=== PATIENT | female | born 1945 | race Caucasian/White ===

== ENCOUNTER → 2019-10-08 | Outpatient (CLI) | payer SELFPAY ==
[2013-06-08 22:11] VITALS: BMI 19.8
== END | disposition home or self-care (01) ==
LOC: LABSPEC 17:31
PROVIDERS: PCP Family Medicine; Referring Provider Podiatrist Foot & Ankle Surgery; Visit Provider Podiatrist Foot & Ankle Surgery
DX: L02.611 Cutaneous abscess of right foot (principal)
CPT/HCPCS: 87070; 87186; 87205

== ENCOUNTER 2024-04-25 03:32 | Inpatient (IN) | payer MEDICARE, SELFPAY ==
[2024-04-25] VITALS (20 sets, daily range): BP systolic 127–198; BP diastolic 59–97; PULSE 81–110; RESP 18–28; TEMP 36.3–37.7; O2SAT 91–99; BMI 16.9; BMI 15.9
--- NOTE | 2024-04-25 03:55 | EDS_ITS ---
HPI History of Present Illness Chief Complaint: Shortness of Breath Informant: patient, spouse/S.O. and EMS Narrative Narrative: Patient is a 78-year-old female with past medical history of hypertension and COPD/emphysema. She states that she wears 2 L of nasal cannula oxygen at nighttime but does not require supplemental oxygen during the day. She reports over the last 24 hours she has had increased shortness of breath and sensation of generalized fatigue/weakness. She denies any known sick contacts. She states that despite wearing her oxygen her symptoms seem to worsen throughout the night/morning and therefore EMS was called to bring her in for evaluation. EMS reports her pulse ox was 93% on her normal 2 L and came up to 98% with increasing her value to 4L PFSH PFSH Medical History Closed wedge compression fracture of T12 vertebra with routine healing COPD exacerbation Peripheral vascular disease, unspecified Ulcers of both lower extremities, limited to breakdown of skin Venous insufficiency of both lower extremities DDD (degenerative disc disease), lumbar DDD (degenerative disc disease), cervical MR (congenital mitral regurgitation) Stage 3 severe COPD by GOLD classification Mixed hyperlipidemia PAD (peripheral artery disease) Tobacco use disorder, continuous Bilateral carotid artery stenosis PVC's (premature ventricular contractions) Hydronephrosis UPJ obstruction, acquired Family history of ischemic heart disease Sebopsoriasis Other psoriasis Essential hypertension, benign Hallux valgus Porokeratosis Home Medications ?Medication ?Instructions ?Recorded ?Last Taken ?Type tiotropium bromide 18 mcg capsule 1 puff inhalation DA AMIRA 06/08/13 06/08/13 History with inhalation device (Spiriva with HandiHaler) albuterol sulfate 90 mcg/actuation 2 puff inhalation Q 4H PRN PRN 04/25/24 Unknown History aerosol inhaler shortness of breath or wheez ing aspirin 81 mg tablet,delayed 81 mg PO DAILY 04/25/24 U nknown History release diltiazem HCl 120 mg 120 mg PO DAILY 04/25/24 Unk nown History capsule,extended release 24 hr ipratropium 0.5 mg-albuterol 3 mg 3 ml inhalation Q4H PRN PRN 04/25/24 Unknown History (2.5 mg base)/3 mL nebulization wheezing soln lisinopril 40 mg tablet 40 mg PO DAILY 04/25/24 Unkn own History multivitamin (Daily Multi-Vitamin 1 tab PO DAILY 04/25 Unknown History tablet) prednisone 20 mg tablet 10 mg PO DAILY@0800 04/25/24 Unknown History Allergy/AdvReac Type Severity Reaction Status Date / Time atorvastatin (From Lipitor) Allergy Mild Nausea Verified 04/25/24 03:42 doxycycline Allergy Mild Rash Verified 04/25/24 03:42 honey (From MediHoney Allergy Mild Other Verified 04/25/24 03:42 (honey)) nicotine Allergy Mild Other Verified 04/25/24 03:42 pneumococcal vaccine (From Allergy Mild Other Verified 04/25/24 03:42 Pneumovax-23) Seasonal Allergies: Uncoded Allergy Mild cough Verified 04/25/24 03:42 sertraline (From Zoloft) Allergy Mild Other Verified 04/25/24 03:42 fexofenadine HCl (From Allergy Unknown Verified 04/25/24 03:42 Marcie) Social History Smoking Status: Current every day smoker tobacco type: cigarettes ROS ROS ED Constitutional Constitutional ED: Denies chills or fever(s) Eyes Eyes: Denies change in vision ENT ENT ED: Reports rhinorrhea; Denies sore throat Cardiovascular Cardiovascular: Denies chest pain or palpitations Respiratory/Chest Respiratory/Chest: Reports cough and dyspnea Gastrointestinal Gastrointestinal: Denies abdominal pain, diarrhea, nausea or vomiting Genitourinary Genitourinary ED: Denies dysuria Musculoskeletal Musculoskeletal: Reports myalgias Integumentary Denies rash Neurologic Neurologic: Reports weakness; Denies headache(s) or paresthesias Hematologic/Lymphatic Hematologic/Lymphatic: Denies easy bleeding or easy bruising EXAM Physical Exam Const Vital Signs: 04/25/24 03:33 04/25/24 03:37 04/25/24 03:56 Temperature 99.6 F H 99.6 F H Temperature Source Oral Oral Pulse Rate 110 H 110 H Respiratory Rate 26 H 26 H Respiratory Effort Short of Breath Respiratory Depth Normal Respiratory Pattern Tachypnea Blood Pressure 198/89 H 198/89 H Blood Pressure Mean 125 125 Pulse Ox 96 96 Oxygen Delivery Method Nasal Cannula Nasal Cannula Nasal Cannula Oxygen Flow Rate (L/min) 2 2 2 Fraction of Inspired Oxygen (FIO2) 04/25/24 04:00 04/25/24 04:37 04/25/24 05:00 Temperature 99.7 F H 99.8 F H Temperature Source Oral Oral Pulse Rate 96 109 H 108 H Respiratory Rate 21 H 25 H 24 H Respiratory Effort Respiratory Depth Respiratory Pattern Normal Blood Pressure 164/77 H 173/59 H Blood Pressure Mean 106 97 Pulse Ox 98 98 Oxygen Delivery Method Nasal Cannula Oxygen Flow Rate (L/min) Fraction of Inspired Oxygen (FIO2) 2 04/25/24 05:33 04/25/24 05:42 04/25/24 06:00 Temperature 99.5 F H 98.8 F Temperature Source Oral Pulse Rate 103 H 99 91 Respiratory Rate 28 H 26 H 22 H Respiratory Effort Respiratory Depth Respiratory Pattern Blood Pressure 159/79 H 157/79 H 174/78 H Blood Pressure Mean 105 105 110 Pulse Ox 98 98 99 Oxygen Delivery Method Nasal Cannula Nasal Cannula Oxygen Flow Rate (L/min) 2 2 Fraction of Inspired Oxygen (FIO2) Positive well nourished and well developed General Appearance ED: well developed; Negative for pallor HEENT HEENT Narrative: Nasal mucosa is hyperemic and boggy There is cobblestoning noted in the posterior pharynx consistent with sinus drainage without airway edema or compromise Eyes PERRL and EOMs intact bilaterally General Eye ED: Negative for scleral icterus Neck supple and no JVD Resp Resp Narrative: Patient is an mild respiratory distress with tachypnea and slight accessory muscle use Breath sounds are severely diminished throughout with diffuse mild expiratory wheeze consistent with history of COPD Cardio regular rhythm Rate: tachycardic and other Other Details: Radial and carotid pulses are equal and symmetric Extremity Extremity Narrative: Mild soft tissue swelling to the right lower leg and small chronic wound present. No surrounding soft tissue changes to suggest secondary infection Negative Homans' sign bilaterally Neuro oriented x3, CN's II-XII intact bilaterally and no sensory deficits noted Sensorium / Orientation: alert Motor Exam: strength 5/5 throughout Psych mental status grossly normal Skin Skin Narrative: Chronic wound to the right lower leg General Skin Exam: Negative for jaundice or pallor MDM MDM MDM Narrative Medical decision making narrative: Patient arrived to the ER with mild respiratory distress with tachypnea and accessory muscle use. Her constellation of symptoms is most consistent with influenza versus COVID versus RSV. In order to ensure that there is not secondary pneumonia or pneumothorax a chest x-ray was added. Patient blood work was obtained to check for acute kidney injury or clinically significant electrolyte abnormalities as a potential cause or acute blood loss anemia. Lab work revealed no clinically significant findings. Chest x-ray revealed no acute lung pathology other than her underlying COPD. Viral swab was positive for influenza which correlates with her symptoms. The patient does have oxygen available at home but she is now requiring a slightly larger dose of around 4 L compared to her normal 2 L to keep her sats greater than 90%. She also does not typically wear oxygen throughout the day and drops down to 88% with ambulation and also reports she feels extremely weak and off balance with this. As she is only 24 hours into the disease process there is high likelihood her symptoms worsen and therefore talk to the hospitalist about potential admission to monitor the patient to ensure her symptoms improve and do not worsen the point where she needs more invasive ventilation such as BiPAP or intubation. He does agree with plan of care at this time and recommends Tamiflu be given secondary to her influenza status and early disease process. Plan of care was discussed with patient and she is agreeable to it and therefore should be admitted at this time History & Record Review Discussion w/independent historian: EMS personnel and Patient Lab Data Attestation: I reviewed the patient's lab results. Labs: Laboratory Results - last 24 hr 04/25/24 03:40 WBC 11.3 H RBC 4.36 Hgb 14.6 Hct 43.2 MCV 99.1 H MCH 33.5 H MCHC 33.8 RDW Std Deviation 47.8 H RDW Coeff of Edgar 13.1 Plt Count 171 MPV 9.1 Immature Gran % (Auto) 0.900 Neut % (Auto) 80.2 H Lymph % (Auto) 11.4 L [place] % (Auto) 6.6 Eos % (Auto) 0.5 Baso % (Auto) 0.4 Absolute Neuts (auto) 9.0 H Absolute Lymphs (auto) 1.29 Nucleated RBC % 0 Sodium 138 Potassium 4.6 Chloride 102 Carbon Dioxide 28.0 Anion Gap 8 BUN 25 H Creatinine 1.12 H Estim Creat Clear Calc 30.68 Est GFR (MDRD) Af Amer 61 Est GFR (MDRD) Non-Af 50 L BUN/Creatinine Ratio 22.3 H Glucose 93 Calcium 10.1 Magnesium 2.2 Radiography Diagnostic Testing: Clinical Impression(s) from Imaging Studies Chest X-Ray 04/25/24 04:30 IMPRESSION: Pulmonary hyperinflation/COPD. No acute cardiopulmonary process is demonstrated. If there are persistent symptoms or clinical concern, follow-up chest CT evaluation may be considered. Reading Location: [facility] Chest x-ray as interpreted by the emergency medicine physician reveals COPD changes without acute infiltrate or pneumothorax Management Discussion w/another healthcare provider: Hospitalist Discharge Plan Triage Chief Complaint: Shortness of Breath ED Provider: Raman Rodriguez Dx/Rx/DC Orders Clinical Impression: Influenza A, HTN (hypertension), COPD with acute exacerbation Prescriptions: No Action tiotropium bromide [Spiriva with HandiHaler] 1 PUFF inhaler 1 puff inhalation DAILY aspirin 81 mg tablet,delayed release (DR/EC) 81 mg PO DAILY diltiazem HCl 120 mg capsule,extended release 24hr 120 mg PO DAILY albuterol sulfate 90 mcg/actuation HFA aerosol inhaler 2 puff INHALATION Q4H PRN PRN (Reason: shortness of breath or wheezing) lisinopril 40 mg tablet 40 mg PO DAILY multivitamin [Daily Multi-Vitamin] Tablet 1 tab PO DAILY ipratropium-albuterol 0.5 mg-3 mg(2.5 mg base)/3 mL solution for nebulization 3 ml inhalation Q4H PRN PRN (Reason: wheezing) prednisone 20 MG tablet 10 mg PO DAILY@0800 Rx Instructions: 40 mg daily for 5 days. Primary Care Provider: Merlin Jim Referrals: Merlin Jim MD [Primary Care Provider] - Print Language: Israeli Disposition Disposition: Acute Care Hospital [facility]
[2024-04-25 03:56] LABS: Absolute Lymphocyte Count 1.29 X10^3/uL (0.83-4.51); Basophil# 0.05 X10^3/uL; Basophil% 0.4 % (0-1); Eosinophil# 0.06 X10^3/uL; Eosinophils% 0.5 % (0-5); Hematocrit 43.2 % (37-47); Hemoglobin 14.6 g/dL (12.0-15.0); Lymphocyte # 1.29 X10^3/ul (0.83-4.51); Lymphocyte % 11.4 % (19-41); Mean Corp Hgb Conc 33.8 g/dL (32-36); Mean Corpuscular Hgb 33.5 pg (27.0-32.0); Mean Corpuscular Volume 99.1 fL (81-99); Mean Platelet Vol. 9.1 fl (6.2-12.0); Monocyte# 0.75 X10^3/uL; Monocyte% 6.6 % (0-10); NRBC Flagged by Analyzer 0 % (0-5); Neutrophil # 9.03 X10^3/uL (2.7-7.7); Neutrophil % 80.2 % (47-70); Platelet Count 171 K/mm3 (150-450); RBC Distribution Width CV 13.1 % (11.6-14.6); RBC Distribution Width SD 47.8 fl (35.1-43.9); Red Blood Count 4.36 M/mm3 (4.2-5.4); White Blood Count 11.3 K/mm3 (4.4-11.0)
[2024-04-25] MEDS: Ipratropium/Albuterol Sulfate 3 ML AMPUL.NEB INHALATION ×3 (04:00→20:35)
[2024-04-25 04:10] LABS: Anion Gap 8 (5-15); BUN 25 mg/dL (7-18); BUN/Creat Ratio 22.3 RATIO (10-20); Calcium,Total 10.1 mg/dL (8.5-10.1); Chloride 102 mmol/L (98-107); Creatinine, Serum 1.12 mg/dL (0.55-1.02); EST Glomerular Filtration Rate 50 mL/min (>60); Est Glom Filt Rate - Afr Amer 61 mL/min (>60); Estimated Creatinine Clearance 30.68 ml/min; Glucose 93 mg/dL (74-106); Magnesium 2.2 mg/dL (1.6-2.6); Potassium 4.6 mmol/L (3.5-5.1); Sodium Level 138 mmol/L (136-145)
[2024-04-25] MEDS: Acetaminophen 325 MG Tablet 650 MG PO (04:19)
[2024-04-25] MEDS: MethylPREDNISolone 125 MG/2 ML Vial IV (04:21)
--- NOTE | 2024-04-25 04:30 | RAD_ITS ---
PROCEDURE: AP and lateral chest radiographs, two views REASON FOR EXAM: Cough TECHNIQUE: AP and lateral chest radiographs were obtained. COMPARISON: None. FINDINGS: The cardiomediastinal silhouette is within normal limits. Monitoring leads overlie the chest. No pneumothorax, focal airspace consolidation, or pleural effusion. The lungs are hyperinflated. Bones are osteopenic with degenerative changes in the spine. Age-indeterminate [id number] height loss of a lower thoracic vertebral body on the lateral view. RAD/Chest PA and Lateral IMPRESSION: Pulmonary hyperinflation/COPD. No acute cardiopulmonary process is demonstrate d. If there are persistent symptoms or clinical concern, follow-up chest CT evalua tion may be considered. Reading Location: [facility]
--- NOTE | 2024-04-25 06:06 | HP.PCM.HOS_ITS ---
[facility] - General General Date of Admission: 04/25/24 Date of Service: 04/25/24 Chief Complaint: SOB, Wheezing, Generalized Weakness and Fatigue. HPI Yue PARRY, is a 78 F with past medical history of essential hypertension; on lisinopril and diltiazem, history of hyperlipidemia; currently not on treatment, chronic and ongoing tobacco abuse; with subsequent COPD on as needed albuterol sulfate and DuoNebs with Spiriva, chronic hypoxic respiratory failure on 2L NC nocturnal, history of bilateral carotid stenosis, history of PVD; with venous insufficiency ulcers to both lower extremities and chronic wound of the Right lower extremity, history of congenital mitral regurgitation, history of PVCs, history of UPJ obstruction with hydronephrosis, history of sebopsoriasis, history of porokeratosis, history of hallux valgus, history of closed T12 wedge compression fracture and 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 Ms. Parry reports her symptoms began approximately 1 day prior to admission with the rapid onset of dyspnea on exertion that progressed to shortness of breath at rest. She also admits to generalized weakness and severe fatigue with patient now wearing her oxygen continuously for the past 24 hours with continued shortness of breath. She denies known sick contacts. She admits to runny nose and myalgias with substernal chest pain that was pressure-like and coincided with her highly elevated blood pressures but she denies associated chills, changes in vision, palpitations, abdominal pain, nausea, vomiting, diarrhea, dysuria, back pain or headache. In the ER she was noted to have a viral screen positive for Influenza A with a corresponding Leukocytosis of 11.3 K present on admission and low-grade fever of 99.5 ?F complicated by clinical evidence of acute-on chronic respiratory insufficiency evidenced by Tachypnea of ~26 breaths/min and patient requiring 4L NC in ER compounded by Uncontrolled Hypertension with blood pressure of 198/89 mmHg present on admission all culminating because Generalized Weakness and Fatigue with diffuse Myalgias and she was then admitted to the general medical floor under droplet and contact precautions for state that is expected to extend beyond 2 midnights. [facility] Medical History (Updated 04/25/24 @ 07:[address] Ming de Gurpreet, DO) Closed wedge compression fracture of T12 vertebra with routine healing COPD exacerbation Peripheral vascular disease, unspecified Ulcers of both lower extremities, limited to breakdown of skin Venous insufficiency of both lower extremities DDD (degenerative disc disease), lumbar DDD (degenerative disc disease), cervical MR (congenital mitral regurgitation) Stage 3 severe COPD by GOLD classification Mixed hyperlipidemia PAD (peripheral artery disease) Tobacco use disorder, continuous Bilateral carotid artery stenosis PVC's (premature ventricular contractions) Hydronephrosis UPJ obstruction, acquired Family history of ischemic heart disease Sebopsoriasis Other psoriasis Essential hypertension, benign Hallux valgus Porokeratosis Home Medications ?Medication ?Instructions ?Recorded ?Last Taken ?Type tiotropium bromide 18 mcg capsule 1 puff inhalation DA AMIRA 06/08/13 06/08/13 History with inhalation device (Spiriva with HandiHaler) albuterol sulfate 90 mcg/actuation 2 puff inhalation Q 4H PRN PRN 04/25/24 Unknown History aerosol inhaler shortness of breath or wheez ing aspirin 81 mg tablet,delayed 81 mg PO DAILY 04/25/24 U nknown History release diltiazem HCl 120 mg 120 mg PO DAILY 04/25/24 Unk nown History capsule,extended release 24 hr ipratropium 0.5 mg-albuterol 3 mg 3 ml inhalation Q4H PRN PRN 04/25/24 Unknown History (2.5 mg base)/3 mL nebulization wheezing soln lisinopril 40 mg tablet 40 mg PO DAILY 04/25/24 Unkn own History multivitamin (Daily Multi-Vitamin 1 tab PO DAILY 04/25 Unknown History tablet) prednisone 20 mg tablet 10 mg PO DAILY@0800 04/25/24 Unknown History Allergy/AdvReac Type Severity Reaction Status Date / Time atorvastatin (From Lipitor) Allergy Mild Nausea Verified 04/25/24 03:42 doxycycline Allergy Mild Rash Verified 04/25/24 03:42 honey (From [facility] Allergy Mild Other Verified 04/25/24 03:42 (honey)) nicotine Allergy Mild Other Verified 04/25/24 03:42 pneumococcal vaccine (From Allergy Mild Other Verified 04/25/24 03:42 Pneumovax-23) Seasonal Allergies: Uncoded Allergy Mild cough Verified 04/25/24 03:42 sertraline (From Zoloft) Allergy Mild Other Verified 04/25/24 03:42 fexofenadine HCl (From Allergy Unknown Verified 04/25/24 03:42 Marcie) Social History Smoking Status: Current every day smoker tobacco type: cigarettes ROS ROS Narrative Review of Systems: Constitutional: Patient was noted to have low-grade fever of 99.5 ?F present on admission but she denies chills. Eyes: Patient denies changes in vision or discharge from eyes. ENT: Patient admits to runny nose but she denies sore throat or ear pain. Resp: Patient admits to significant shortness of breath and nonproductive cough as per HPI. CV: Patient admits to chest pressure that corresponded with her highly elevated blood pressure but she denies palpitations or heart racing. GI: Patient denies abdominal pain, nausea, vomiting, diarrhea or constipation. : Patient denies dysuria or hematuria. MSK: Patient reports generalized weakness and diffuse myalgias but she denies arthralgias. Skin: Patient has chronic Right lower extremity wound but she denies rash. Psych: Patient denies symptoms of uncontrolled depression or anxiety. Neuro: Patient denies headache, paresthesia or focal neurologic deficits. Allergy: Patient denies lip swelling, tongue swelling or urticaria. Hematology: Patient denies easy bleeding or easy bruisability. Endocrinology: Patient denies polyuria, polydipsia or polyphagia. 14 point review systems otherwise negative except for positives noted above in HPI. Vital Signs Vital Signs Vital Signs: 04/25/24 03:33 04/25/24 03:37 04/25/24 03:56 Temperature 99.6 F H 99.6 F H Temperature Source Oral Oral Pulse Rate 110 H 110 H Respiratory Rate 26 H 26 H Respiratory Effort Short of Breath Respiratory Depth Normal Respiratory Pattern Tachypnea Blood Pressure 198/89 H 198/89 H Blood Pressure Mean 125 125 Pulse Ox 96 96 Oxygen Delivery Method Nasal Cannula Nasal Cannula Nasal Cannula Oxygen Flow Rate (L/min) 2 2 2 Fraction of Inspired Oxygen (FIO2) 04/25/24 04:00 04/25/24 04:37 04/25/24 05:00 Temperature 99.7 F H 99.8 F H Temperature Source Oral Oral Pulse Rate 96 109 H 108 H Respiratory Rate 21 H 25 H 24 H Respiratory Effort Respiratory Depth Respiratory Pattern Normal Blood Pressure 164/77 H 173/59 H Blood Pressure Mean 106 97 Pulse Ox 98 98 Oxygen Delivery Method Nasal Cannula Oxygen Flow Rate (L/min) Fraction of Inspired Oxygen (FIO2) 2 04/25/24 05:33 04/25/24 05:42 Temperature 99.5 F H Temperature Source Pulse Rate 103 H 99 Respiratory Rate 28 H 26 H Respiratory Effort Respiratory Depth Respiratory Pattern Blood Pressure 159/79 H 157/79 H Blood Pressure Mean 105 105 Pulse Ox 98 98 Oxygen Delivery Method Nasal Cannula Oxygen Flow Rate (L/min) 2 Fraction of Inspired Oxygen (FIO2) Weight Weight: 101 lb 13.657 oz Body Mass Index (BMI) 16.9 Physical Exam Const alert and oriented x3 Constitutional Narrative: Modestly labored respirations noted with very thin 'pink puffer' phenotype. General Appearance: cooperative HEENT normocephalic, head/scalp atraumatic and hearing grossly normal bilaterally HEENT Narrative: Patient noted to have cobblestoning in the posterior pharynx consistent with sinus drainage without airway edema or compromise. Eyes PERRL, EOMs intact bilaterally and conjunctivae normal Neck no lymphadenopathy and supple Resp Resp Narrative: Diminished breath sounds throughout with modest respiratory distress and tachypnea and slight accessory muscle use with faint expiratory wheezing. Auscultation: wheezes Cardio regular rate and regular rhythm GI normal to inspection, nondistended, normoactive bowel sounds, soft to palpation, non-tender and non-distended Extremity normal to inspection, full ROM and no clubbing, cyanosis or edema Skin Skin Narrative: Patient is a chronic wound to the Right leg. Neuro oriented x3, CN's II-XII intact bilaterally, moves all extremities and no focal motor deficits Sensorium / Orientation: awake, alert, oriented to person, oriented to place and oriented to time Speech: speech normal Psych affect normal Results Medical Records Data Attestation: I reviewed the patient's medical records Lab / Micro Data Attestation: I reviewed the patient's lab results. 04/25/24 03:40 04/25/24 03:40 Labs: Laboratory Results - last 24 hr 04/25/24 03:40: WBC 11.3 H, RBC 4.36, Hgb 14.6, Hct 43.2, MCV 99.1 H, MCH 33.5 H , MCHC 33.8, RDW Std Deviation 47.8 H, RDW Coeff of Edgar 13.1, Plt Count 171, MPV 9.1, Immature Gran % (Auto) 0.900, Neut % (Auto) 80.2 H, Lymph % (Auto) 11.4 L, Crawford % (Auto) 6.6, Eos % (Auto) 0.5, Baso % (Auto) 0.4, Absolute Neuts (auto) 9.0 H, Absolute Lymphs (auto) 1.29, Nucleated RBC % 0, Sodium 138, Potassium 4.6, Chloride 102, Carbon Dioxide 28.0, Anion Gap 8, BUN 25 H, Creatinine 1.12 H , Estim Creat Clear Calc 30.68, Est GFR (MDRD) Af Amer 61, Est GFR (MDRD) Non-Af 50 L, BUN/Creatinine Ratio 22.3 H, Glucose 93, Calcium 10.1, Magnesium 2.2 Micro: Microbiology 04/25/24 03:45 Mucosa - Nasopharyngeal SARS-CoV-2, Influenza & RSV (PCR) - Final Influenzae A Imaging Radiology Impression Chest X-Ray 04/25/24 04:30 IMPRESSION: Pulmonary hyperinflation/COPD. No acute cardiopulmonary process is demonstrated. If there are persistent symptoms or clinical concern, follow-up chest CT evaluation may be considered. Reading Location: [facility] [address] Assessment & Plan Assessment/Plan (1) Influenza A: (2) Leukocytosis: QUALIFIERS: Leukocytosis type: unspecified Qualified Code(s): D 72.829 - Elevated white blood cell count, unspecified (3) Fever: QUALIFIERS: Fever type: due to other condition Qualified Code(s): R50.81 - Fever presenting with conditions classified elsewhere (4) COPD with acute exacerbation: (5) Tobacco abuse: (6) Respiratory insufficiency: (7) Uncontrolled hypertension: (8) Chest pressure: (9) MR (congenital mitral regurgitation): (10) Generalized weakness: (11) Fatigue: QUALIFIERS: Fatigue type: unspecified Qualified Code(s): R53.83 - Other fatigue (12) Myalgia: (13) Peripheral vascular disease, unspecified: (14) Venous insufficiency of both lower extremities: PLAN: Plan 1. Influenza A with Leukocytosis of 11.3 K present on admission and low-grade fever of 99.5 ?F present on admission - Admit to general medical floor under contact and droplet precautions. Maintain Tamiflu being done in the ER. Give supplemental vitamin D3, vitamin C and zinc to help boost immunity and hopefully speed recovery. Give acetaminophen as needed for [id number] (level 1- 5/10) pain or fever. Give morphine IV as needed for severe (level 6-10/10) pain. 2. AE COPD; in the setting of chronic and ongoing Tobacco Abuse complicating #1 - Resume IV Solu-Medrol begun in the ER plus continue scheduled and as needed nebulizers. Add IV Rocephin and IV azithromycin as COPD patient's airways are chronically colonized with numerous organisms that cannot be cleared from the airways due to loss of the mucociliary escalator. Give probiotic to replace normal kelsie. Patient was encouraged to stop smoking but she is in the precontemplative phase of her addiction. She also ironically has an allergy listed to nicotine so no patch was ordered. 3. [id number] respiratory insufficiency evidenced by Tachypnea of ~26 breaths/min and patient requiring 4L NC in ER due to #1 & #2 - Wean additional supplemental oxygen as tolerated with goal oxygen saturation of ~92%. 4. Uncontrolled Hypertension; with blood pressure of 198/89 mmHg present on admission with corresponding Chest Pressure and known history of Congenital Mitral Regurgitation compounding #1 - #3 - Continue home regimen plus give hydralazine IV prn for systolic blood pressure > 160 mmHg. Serialize troponin. 5. Generalized Weakness and Fatigue with diffuse Myalgias attributable to #1 - #4 - PT/OT and Case Management to consult and treat on-rounds in AM with help appreciated in advance. 6. History of PVD; with venous insufficiency ulcers to both lower extremities and currently healing chronic wound of the Right lower extremity adding to the medical complexity of #1 - #5 - Patient started on antibiotics for #2. Continue baby aspirin daily. We will consult Wound RN to see patient in a.m. for further recommendations with help appreciated in advance. 7. History of hyperlipidemia; currently not on treatment - Check Lipid Profile this admission to confirm status. 8. History of bilateral carotid stenosis - Noted. 9. History of congenital mitral regurgitation - Noted. Check echocardiogram to assess current valve function and LVEF in light of #4. 10. History of PVCs - Noted. 11. History of UPJ obstruction with hydronephrosis - Noted with no signs of recurrence at this time. 12. History of sebopsoriasis - Noted. 13. History of porokeratosis - Noted. 14. History of hallux valgus - Noted for the sake of completeness. 15. OA; with history of closed T12 wedge compression fracture and DDD of the lumbar / cervical spines - Give acetaminophen as needed as per pain scale noted above in #1. 16. DVT/GI prophylaxis - Lovenox 40 mg sq daily. Start famotidine 20 mg p.o. twice daily in light of high-dose steroids for #2. Total time: Approximately (but not less than) 75 minutes. Charges/Coding Visit Charges Inpatient E&M: 21196 Init Hosp L3
[2024-04-25] MEDS: Oseltamivir Phosphate 75 MG Capsule PO (06:17)
--- NOTE | 2024-04-25 07:29 | ECHOD_ITS ---
Reason For Study Reason For Study: COPD EXACERBATION Procedure This was a 2D Doppler, Color Flow transthoracic echocardiogram. Exam performed portable in patient room. Left Ventricle Normal LV size. Mild concentric left ventricular hypertrophy. The left ventricular ejection fraction is 65 %. Stage 1 diastolic dysfunction. Right Ventricle Normal right ventricle. Atria The left and right atria are normal. Mitral Valve Mild-Moderate (1-2+) mitral valve insufficiency. Tricuspid Valve Trivial tricuspid valve insufficiency. Unable to estimate RV systolic pressure due to insufficient tricuspid regurgitant envelope. Aortic Valve Aortic sclerosis, no stenosis. Pulmonic Valve The pulmonic valve is not well visualized. Great Vessels Normal sized aortic root. Pericardium/Pleural No pericardial effusion. MMode/2D Measurements & Calculations LVIDd: 3.3 cm IVSd: 1.2 cm LVOT diam: 1.8 cm LVIDs: 1.9 cm LVPWd: 0.91 cm LVOT area: 2.7 cm2 RVDd: 2.6 cm FS: 42.8 % LAV(MOD-bp): 19.8 ml LVAd ap4: 17.1 cm2 LVAd ap2: 17.0 cm2 LAV(MOD-bp) Indexed: 13.8 ml/m2 LVLd ap4: 6.9 cm LVLd ap2: 6.7 cm LAV(MOD-sp2): 21.7 ml EDV(MOD-sp4): 35.4 ml EDV(MOD-sp2): 36.2 ml LAV(MOD-sp4): 17.1 ml EDV(sp4-el): 36.1 ml EDV(sp2-el): 36.2 ml LVAs ap4: 10.1 cm2 LVAs ap2: 9.6 cm2 LVLs ap4: 6.0 cm LVLs ap2: 5.8 cm ESV(MOD-sp4): 14.8 ml ESV(MOD-sp2): 13.6 ml ESV(sp4-el): 14.3 ml ESV(sp2-el): 13.5 ml EF(MOD-sp4): 58.0 % EF(MOD-sp2): 62.4 % EF(sp4-el): 60.5 % SV(MOD-sp4): 20.5 ml SV(MOD-sp2): 22.6 ml SV(sp4-el): 21.8 ml SI(MOD-sp4): 14.2 ml/m2 SI(MOD-sp2): 15.7 ml/m2 Ao sinus diam: 3.[address] Junction: 2.2 cm LA A4 area: 8.5 cm2 LA dimension(2D): 2.9 cm TAPSE: 1.7 cm RA A4 area: 6.4 cm2 Time Measurements MV dec time: 0.19 sec Doppler Measurements & Calculations MV E max chico: 77.2 cm/sec Lat Peak E' Chico: 10.8 cm/sec Med Peak E' [place]ico: 8.8 cm/sec MV A max chico: 114.0 cm/sec E/E' lat: 7.1 E/E' med: 8.8 MV E/A: 0.68 MV dec slope: 399.6 cm/sec2 Ao V2 max: 140.3 cm/sec LV V1 max: 104.4 cm/sec Ao max P.9 mmHg LV V1 max P.4 mmHg Ao V2 mean: 87.1 cm/sec LV V1 mean P.3 mmHg Ao mean P.5 mmHg LV V1 mean: 73.2 cm/sec Ao V2 VTI: 22.9 cm LV V1 VTI: 17.8 cm AV (velocity ratio): 0.78 QUIN(I,D): 2.1 cm2 QUIN(V,D): 2.0 cm2 SV(LVOT): 47.7 ml PA V2 max: 84.4 cm/sec ECHO/Echo Complete Interpretation Summary Mild concentric left ventricular hypertrophy. The left ventricular ejection fraction is 65 %. Stage 1 diastolic dysfunction. Mild-Moderate (1-2+) mitral valve insufficiency. Ordering Physician: Ming Freed Performed By: Anh Rodriguez RDCS
[2024-04-25 07:59] LABS: Magnesium 2.2 mg/dL (1.6-2.6)
[2024-04-25 08:28] LABS: Cholesterol 203 mg/dL (200); High Density Lipoprotein 121 mg/dL; Triglycerides 83 mg/dL; Very Low Density Lipoprotein 17 mg/dL (5-40)
[2024-04-25 09:51] LABS: Troponin-I HS 32 pg/mL (3.0-54.0)
[2024-04-25] MEDS: 0.9% Saline Lock 10 ML Syringe IV (10:12)
[2024-04-25] MEDS: 0.9% Normal Saline (100mL Bag) 100 ML 15 ML IV (10:12)
[2024-04-25] MEDS: Ceftriaxone 1 GM/50 ML BAG IV (10:16)
[2024-04-25] MEDS: Famotidine 20 MG Tablet PO ×2 (10:18→22:14)
[2024-04-25] MEDS: Zinc Sulfate 50 mg zinc (220 mg) ORAL capsule PO (10:19)
[2024-04-25] MEDS: Lisinopril 40 MG Tablet PO (10:19)
[2024-04-25] MEDS: Lactobacillis Acidophilus 1 CAP PO ×4 (10:19→22:13)
[2024-04-25] MEDS: Aspirin E.C. 81 MG Tablet PO (10:19)
[2024-04-25] MEDS: dilTIAZem CD 120 MG Capsule PO (10:20)
[2024-04-25] MEDS: Multivitamins,Therapeutic Tablet 1 TABLET PO (10:20)
[2024-04-25] MEDS: MethylPREDNISolone 125 MG/2 ML Vial 60 MG IV ×2 (10:21→22:13)
[2024-04-25] MEDS: Azithromycin 500 MG in 0.9% Normal Saline (250mL Bag) 250 ML 255 MG IV (11:10)
[2024-04-25] MEDS: Albuterol 2.5 MG/3 ML VIAL.NEB. INHALATION (16:23)
[2024-04-25] MEDS: Oseltamivir Phosphate 30 MG Capsule PO (17:35)
--- NOTE | 2024-04-25 19:50 | NURSING ---
This RN entered the room and Charge Nurse was telling the patient night shift manager took a call from his wanting us know his called in to get him a breathing treatment. Patient states he called at 6pm for respiratory 630 for respiratory and 7pm for respiratory. Patient sitting up at chair c/o being short of breath but didnt have his oxygen on, I explained when he gets up to the bathroom he needs to wear 02 N/C patient states i took it off thats my fault. woodworking machinist called respiratory and they are on their way up. Also explained to the patient we get out of report at 730 and was not here at 6pm when he called or 630 or 7pm But im here now and i will get him a breathing treatment. Patient appologized.
[2024-04-26 02:00] VITALS: BP 142/73; PULSE 88; RESP 19; TEMP 36.9; O2SAT 98
[2024-04-26 03:02] VITALS: PULSE 82
[2024-04-26] MEDS: Oseltamivir Phosphate 30 MG Capsule PO (04:56)
[2024-04-26 06:00] VITALS: BMI 16.2
[2024-04-26 06:12] LABS: Absolute Lymphocyte Count 0.46 X10^3/uL (0.83-4.51); Absolute Neutrophil Count 14.4 X10^3/uL (2.0-7.7); Basophil# 0.02 X10^3/uL; Basophil% 0.1 % (0-1); Hematocrit 39.7 % (37-47); Hemoglobin 13.2 g/dL (12.0-15.0); Lymphocyte # 0.46 X10^3/ul (0.83-4.51); Lymphocyte % 2.9 % (19-41); Mean Corp Hgb Conc 33.2 g/dL (32-36); Mean Corpuscular Hgb 33.2 pg (27.0-32.0); Mean Platelet Vol. 8.9 fl (6.2-12.0); Monocyte# 0.85 X10^3/uL; Monocyte% 5.4 % (0-10); NRBC Flagged by Analyzer 0 % (0-5); Neutrophil # 14.37 X10^3/uL (2.7-7.7); Neutrophil % 91.2 % (47-70); POSITIVE DIFFERENTIAL YES; Platelet Count 177 K/mm3 (150-450); RBC Distribution Width CV 13.1 % (11.6-14.6); RBC Distribution Width SD 48.2 fl (35.1-43.9); Red Blood Count 3.97 M/mm3 (4.2-5.4); White Blood Count 15.8 K/mm3 (4.4-11.0)
[2024-04-26 06:39] LABS: ALB/GLOB Ratio 0.9 RATIO (0.9-2.4); AST(SGOT) 28 U/L (15-37); Alanine Aminotransfer ALT/SGPT 30 U/L (13-56); Albumin, Serum 3.1 g/dL (3.2-5.0); Alkaline Phosphatase 68 U/L (45-117); Anion Gap 8 (5-15); BUN 30 mg/dL (7-18); BUN/Creat Ratio 28.3 RATIO (10-20); Calcium,Total 8.8 mg/dL (8.5-10.1); Chloride 104 mmol/L (98-107); Creatinine, Serum 1.06 mg/dL (0.55-1.02); EST Glomerular Filtration Rate 53 mL/min (>60); Est Glom Filt Rate - Afr Amer 65 mL/min (>60); Estimated Creatinine Clearance 30.52 ml/min; Globulin 3.4 g/dL (2.2-4.2); Glucose 130 mg/dL (74-106); Phosphorus 3.6 mg/dL (2.5-4.9); Potassium 4.2 mmol/L (3.5-5.1); Protein, Total 6.5 g/dL (6.4-8.2); Sodium Level 138 mmol/L (136-145); Thyroid Stim Hormone (TSH) 0.334 uIU/mL (0.358-3.740)
[2024-04-26 07:17] VITALS: PULSE 91; RESP 22; O2SAT 95
[2024-04-26] MEDS: Ipratropium/Albuterol Sulfate 3 ML AMPUL.NEB INHALATION (07:17)
--- NOTE | 2024-04-26 09:16 | PCM.PN.HOSP ---
Subjective Subjective Doing well, no issues overnight. Maintaining saturations on 2 L nasal cannula Objective Data Objective Data Vital Signs: Vital Signs Temp Pulse Resp BP Pulse Ox O2 Del Method O2 Flow Rate 98.4 F 91 22 H 142/73 H 95 Nasal Cannula 2 04/26/24 02:00 04/26/24 07:17 04/26/24 07:17 04/26/24 02:00 04/26/24 07:17 04/26/24 07:17 04/26/24 07:17 FiO2 2 04/25/24 05:00 Oxygen Flow Rate (L/min) 2 Oxygen Delivery Method Nasal Cannula Weight: 97 lb 10.636 oz Body Mass Index (BMI) 16.2 Intake & Output: Intake and Output for Last 24 Hours 04/25/24 04/26/24 04/27/24 03:59 03:59 03:59 Intake Total 522.25 / 522.25 150 / 150 Balance 522.25 / 522.25 150 / 150 Lab / Micro Data 04/26/24 05:32 04/26/24 05:32 Labs: Laboratory Results - last 24 hr 04/25/24 09:27: Troponin I High Sens 32 04/26/24 05:32: WBC 15.8 H, RBC 3.97 L, Hgb 13.2, Hct 39.7, MCV 100.0 H, MCH 33.2 H, MCHC 33.2, RDW Std Deviation 48.2 H, RDW Coeff of Edgar 13.1, Plt Count 177, MPV 8.9, Immature Gran % (Auto) 0.400, Neut % (Auto) 91.2 H, Lymph % (Auto) 2.9 L, Harris % (Auto) 5.4, Eos % (Auto) 0.0, Baso % (Auto) 0.1, Absolute Neuts (auto) 14.4 H, Absolute Lymphs (auto) 0.46 L, Nucleated RBC % 0, Sodium 138, Potassium 4.2, Chloride 104, Carbon Dioxide 26.0, Anion Gap 8, BUN 30 H, Creatinine 1.06 H, Estim Creat Clear Calc 30.52, Est GFR (MDRD) Af Amer 65, Est GFR (MDRD) Non-Af 53 L, BUN/Creatinine Ratio 28.3 H, Glucose 130 H, Calcium 8.8, Phosphorus 3.6, Total Bilirubin 0.30, AST 28, ALT 30, Alkaline Phosphatase 68, Total Protein 6.5, Albumin 3.1 L, Globulin 3.4, Albumin/Globulin Ratio 0.9, TSH 0.334 L Micro: Microbiology 04/25/24 03:45 Mucosa - Nasopharyngeal SARS-CoV-2, Influenza & RSV (PCR) - Final Influenzae A Physical Exam Narrative General: Alert, Oriented x3, Cooperative, No apparent distress HEENT: Atraumatic, PERRLA, EOMI, Normocephalic Oral: Moist Mucosa Neck: Supple, No JVD Lungs: Diminished, Normal air movement, No rhonchi, scattered wheeze, No rales Cardiovascular: Regular rate, Regular Rhythm, Normal S1, Normal S2, No murmurs Abdomen: Soft, Non Tender, Non-Distended, No Hepato-splenomegaly Extremities: No edema, Capillary Refill Less than 3 Seconds Skin: No rashes, No breakdown Musculoskeletal: No Tenderness to Palpation of Joints or Extremities Neurological: No focal neurological deficits, Motor Exam 5/5 strength throughout, Sensory exam intact to light touch and pain Psych/Mental Status: Normal Affect, Appropriate Assessment & Plan Assessment/Plan (1) Influenza A: (2) COPD with acute exacerbation: (3) Respiratory insufficiency: PLAN: Plan 1. Acute COPD exacerbation due to influenza A with acute hypoxic respiratory insufficiency ? Continue with inhalers ? Continue with steroids ? Will continue with Tamiflu ? Continue with Rocephin and azithromycin ? Will plan for an ambulatory pulse ox today ? While she does have a oxygen concentrator at home she does not wear continuous oxygen 2. Essential HTN/HLD/peripheral vascular disease ? Blood pressures are currently stable ? Will resume with her home blood pressure medications ? Will monitor make adjustments as necessary DVT: Lovenox Charges/Coding Visit Charges Inpatient E&M: 53768 Subs Hosp L2
[2024-04-26 09:23] VITALS: BP 139/68; PULSE 95; RESP 16; TEMP 36.9; O2SAT 98
[2024-04-26 09:30] VITALS: O2SAT 87; O2SAT 90; O2SAT 92
[2024-04-26] MEDS: Lactobacillis Acidophilus 1 CAP PO (09:39)
[2024-04-26] MEDS: dilTIAZem CD 120 MG Capsule PO (09:39)
[2024-04-26] MEDS: Aspirin E.C. 81 MG Tablet PO (09:39)
[2024-04-26] MEDS: Multivitamins,Therapeutic Tablet 1 TABLET PO (09:40)
[2024-04-26] MEDS: MethylPREDNISolone 125 MG/2 ML Vial 60 MG IV (09:41)
[2024-04-26] MEDS: Ceftriaxone 1 GM/50 ML BAG IV (09:42)
[2024-04-26] MEDS: Lisinopril 40 MG Tablet PO (09:43)
[2024-04-26] MEDS: Zinc Sulfate 50 mg zinc (220 mg) ORAL capsule PO (09:43)
--- NOTE | 2024-04-26 11:03 | CASEMGMT ---
JACK DOUGLAS Assessment: Face to Face with pt for initial transition planning/care coordination assessment. JACK DOUGLAS introduced self and role at [facility], pt voices understanding and consents to assessment. Pt is A&O x4 and answers all questions appropriately at this time. Pt sitting in bed in no distress. Care providers, pharmacy, and demographics verified/updated. Strata: 2 Admitting Dx: Flu A With COPD Exacerbation PCP: Diandra Specialists: VANNA Preferred Pharmacy: [facility] Insurance: MCR A Prescription Benefit: yes LNOK: , Jose; Daughter, Susannah Living Arrangements: Pt lives with in a 1 story home with 4 steps to enter. ADLs: I with ADLs, needs assistance for IADLs. Transportation: Pt drives self and denies concerns with transportation. DME: Cane, shower chair, has own oxygen concentrator at home that she owns. HHC/SNF: Denies Hx of. Pt states no concerns with going home at time of dc. JACK DOUGLAS noted PT recommended OP therapy. Pt states already going to for therapy. Discussed O2 needs at DC, pt does not have a potable tank. JACK DOUGLAS provided list of local DME providers, pt chose [employer] for O2 needs. Pt states no further concerns/needs. CM to follow. Advised pt to ask CM if any further question/concerns/needs arise, voices understanding. Pt Goal: Home Plan: Home, follow for O2 needs. Lisa SANTIAGO CM
--- NOTE | 2024-04-26 11:04 | CASEMGMT ---
Addendum entered by Priscilla Lima 04/26/24 16:07: [employer] rep just arrived to floor at this time. Addendum entered by Priscilla Lima 04/26/24 16:06: JACK DOUGLAS into pt room, pt states she is leaving and not waiting on oxygen. She is aware that this RN MISAEL spoke with the [employer] rep and he should be bringing it soon. She states she doesn't care, she is leaving. She is aware she will need to speak to her nurse about this. Pt states she called [employer] and they do not have record of the referral. Pt is assured that they were contacted and received the referral as a response had been given. Updated pt nurse. Addendum entered by Priscilla Lima 04/26/24 13:13: Pt nurse notified that pt is present. JACK DOUGLAS into pt room, pt and agree to cost of portable oxygen and would like to proceed and dc this date. Updated hospitalist. [place] [facility] [place] [facility] [place] this time. Original Note: JACK DOUGLAS into pt room, pt qualifies for 2L of oxygen with exertion. Discussed this with pt, pt states that she does not want to go home with a portable tank ordered. She states she already has a concentrator. Pt states she does go out of the home. Discussed why she needs it. Pt states she and her smoke and she does not want any tanks in the home. Reviewed with her that it is unsafe to smoke in the home at all with oxygen and this includes the concentrator. Pt verbalizes understanding and states that it is done in one room only. Updated hospitalist. Pt wants to discuss with her when he gets her this portable oxygen.
[2024-04-26] MEDS: Azithromycin 500 MG in 0.9% Normal Saline (250mL Bag) 250 ML 255 MG IV (11:20)
--- NOTE | 2024-04-26 13:42 | DCINST_ITS ---
Discharge Instructions Diet Discharge Diet: Low fat / Low cholesterol DC O2, CPAP, BIPAP needs RN Home O2 Qualification: Home O2 Qualification: Is the patient on home oxygen No 04/26/24 09:30 Home O2 Qualification: AT REST 1- Pulse Ox at rest 92 04/26/24 09:30 Home O2 Qualification: WITH AMBULATION 1- Pulse Ox with ambulation 87 04/26/24 09:30 1- Oxygen Flow Rate with 0 04/26/24 09:30 ambulation 2- Pulse Ox with ambulation 90 04/26/24 09:30 2- Oxygen Flow Rate with 2 04/26/24 09:30 ambulation Home O2 Discharge instructions: No Dressing / Incision Discharge Activity: Return to Normal Activity Dressing / Incision Call your doctor if you observe: Fever of 101 or Higher, Shortness of breath, Dizziness, Fainting spells, Swelling in the ankles, Chest pain and Increased palpitations (irregular heartbeat) Follow Up Care Test Results: Test results from this visit will be discussed in further detail at your follow- up appointment, if applicable. Discharge Plan Admission Admit Date/Time: 04/25/24 06:52 Attending Provider: Bob Larsen Primary Care Provider: Merlin Jim Consulting Providers: Ming Freed Discharge Orders/Prescriptions Prescriptions: New oseltamivir 30 mg Capsule 30 mg PO Q12H 5 Days Qty: 10 0RF azithromycin 500 mg tablet 500 mg PO DAILY 2 Days Qty: 2 0RF Rx Instructions: start on day 2 of therapy cefdinir 300 mg capsule 300 mg PO BID 5 Days Qty: 10 0RF Continued tiotropium bromide [Spiriva with HandiHaler] 1 PUFF inhaler 1 puff inhalation DAILY aspirin 81 mg tablet,delayed release (DR/EC) 81 mg PO DAILY diltiazem HCl 120 mg capsule,extended release 24hr 120 mg PO DAILY albuterol sulfate 90 mcg/actuation HFA aerosol inhaler 2 puff INHALATION Q4H PRN PRN (Reason: shortness of breath or wheezing) lisinopril 40 mg tablet 40 mg PO DAILY multivitamin [Daily Multi-Vitamin] Tablet 1 tab PO DAILY ipratropium-albuterol 0.5 mg-3 mg(2.5 mg base)/3 mL solution for nebulization 3 ml inhalation Q4H PRN PRN (Reason: wheezing) prednisone 20 MG tablet 10 mg PO DAILY@0800 Rx Instructions: 40 mg daily for 5 days. Referrals / Follow Up: Merlin Jim MD [Primary Care Provider] - Within 1 Week Disposition Disposition (needs filled in before D/C Order can be placed): Home, Self Care
--- NOTE | 2024-04-26 13:49 | PCM.DC.SUM ---
Providers Date of Admission: 04/25/24 Primary Care Physician: Dr. 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 04/25/24 16:18 Consult: Onc/Wound/aquarium tank attendant Routine Comment: Reason for Consult:: RLE wound Reason For Visit: INFLUENZA A WITH COPD EXACERBATION Diagnosis Discharge Diagnosis (1) Influenza A: Status: Acute Code(s): J10.1 - Influenza due to other identified influenza virus with other respiratory manifestations (2) COPD with acute exacerbation: Status: Chronic Code(s): J44.1 - Chronic obstructive pulmonary disease with (acute) exacerbation (3) Respiratory insufficiency: Status: Acute Code(s): R06.89 - Other abnormalities of breathing Medications at Discharge Home Medications tiotropium bromide 18 mcg capsule with inhalation device (Spiriva with HandiHaler) 1 puff inhalation DAILY 06/08/13 albuterol sulfate 90 mcg/actuation aerosol inhaler 2 puff inhalation Q4H PRN PRN shortness of breath or wheezing 04/25/24 aspirin 81 mg tablet,delayed release 81 mg PO DAILY 04/25/24 diltiazem HCl 120 mg capsule,extended release 24 hr 120 mg PO DAILY 04/25/24 ipratropium 0.5 mg-albuterol 3 mg (2.5 mg base)/3 mL nebulization soln 3 ml inhalation Q4H PRN PRN wheezing 04/25/24 lisinopril 40 mg tablet 40 mg PO DAILY 04/25/24 multivitamin (Daily Multi-Vitamin tablet) 1 tab PO DAILY 04/25/24 prednisone 20 mg tablet 10 mg PO DAILY@0800 04/25/24 azithromycin 500 mg tablet 500 mg PO DAILY 2 days #2 tabs 04/26/24 cefdinir 300 mg capsule 300 mg PO BID 5 days #10 caps 04/26/24 oseltamivir 30 mg capsule 30 mg PO Q12H 5 days #10 caps 04/26/24 Hospital Course Operations None Procedures None Summary of Care Provided Minutes Spent on Discharge: 33 Hospital Course: Per HPI: GONZALO PARRY, is a 78 F with past medical history of essential hypertension; on lisinopril and diltiazem, history of hyperlipidemia; currently not on treatment, chronic and ongoing tobacco abuse; with subsequent COPD on as needed albuterol sulfate and DuoNebs with Spiriva, chronic hypoxic respiratory failure on 2L NC nocturnal, history of bilateral carotid stenosis, history of PVD; with venous insufficiency ulcers to both lower extremities and chronic wound of the Right lower extremity, history of congenital mitral regurgitation, history of PVCs, history of UPJ obstruction with hydronephrosis, history of sebopsoriasis, history of porokeratosis, history of hallux valgus, history of closed T12 wedge compression fracture and 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 Ms. Parry reports her symptoms began approximately 1 day prior to admission with the rapid onset of dyspnea on exertion that progressed to shortness of breath at rest. She also admits to generalized weakness and severe fatigue with patient now wearing her oxygen continuously for the past 24 hours with continued shortness of breath. She denies known sick contacts. She admits to runny nose and myalgias with substernal chest pain that was pressure-like and coincided with her highly elevated blood pressures but she denies associated chills, changes in vision, palpitations, abdominal pain, nausea, vomiting, diarrhea, dysuria, back pain or headache. In the ER she was noted to have a viral screen positive for Influenza A with a corresponding Leukocytosis of 11.3 K present on admission and low-grade fever of 99.5 ?F complicated by clinical evidence of acute-on chronic respiratory insufficiency evidenced by Tachypnea of ~26 breaths/min and patient requiring 4L NC in ER compounded by Uncontrolled Hypertension with blood pressure of 198/89 mmHg present on admission all culminating because Generalized Weakness and Fatigue with diffuse Myalgias and she was then admitted to the general medical floor under droplet and contact precautions for state that is expected to extend beyond 2 midnights. Hospital Course: 1. Acute COPD exacerbation secondary to influenza A with acute hypoxic respiratory insufficiency?78-year-old female presented to the hospital with increasing shortness of breath. She does intermittently wear 2 L nasal cannula at home at night but does not wear oxygen during the day. She noticed that she had to be wearing her oxygen continuously for 24 hours prior to admission which is why she came to the hospital. She did come back positive for influenza A and there is concern for possible superimposed bacterial pneumonia so she was started on Tamiflu, steroids, and antibiotics. She is still requiring only 2 L nasal cannula and only needed 2 L with ambulation as well. I discussed with her the possibility for discharge in the next 24 to 48 hours however she would like to go home today. I discussed with her the plan for discharge she expressed understanding of the risks and benefits of going home and would like to go home today. I have reviewed the oxygen testing, and this patient qualifies for the home equipment and portability. The patient is mobile in the home and the community. Will plan for 5 more days of Tamiflu as well as the steroid she was prescribed by the ER physician on the day of her admission. Will plan for 2 more days of azithromycin 500 mg p.o. and cefdinir 300 mg p.o. twice daily for 5 more days. I recommend she follow-up with her PCP in 3 to 5 days. 2. Essential hypertension, hyperlipidemia, peripheral vascular disease are all chronic medical conditions which complicate her care. Her home medications were continued where appropriate Physical Exam Narrative General: Alert, Oriented x3, Cooperative, No apparent distress HEENT: Atraumatic, PERRLA, EOMI, Normocephalic Oral: Moist Mucosa Neck: Supple, No JVD Lungs: Diminished, Normal air movement, No rhonchi, scattered wheeze, No rales Cardiovascular: Regular rate, Regular Rhythm, Normal S1, Normal S2, No murmurs Abdomen: Soft, Non Tender, Non-Distended, No Hepato-splenomegaly Extremities: No edema, Capillary Refill Less than 3 Seconds Skin: No rashes, No breakdown Musculoskeletal: No Tenderness to Palpation of Joints or Extremities Neurological: No focal neurological deficits, Motor Exam 5/5 strength throughout, Sensory exam intact to light touch and pain Psych/Mental Status: Normal Affect, Appropriate Weight / BMI Weight Weight: 97 lb 10.636 oz Body Mass Index (BMI) 16.2 ABG / Lab / Microbiology Data 04/26/24 05:32 04/26/24 05:32 Laboratory: Laboratory Results - last 24 hr 04/26/24 05:32: WBC 15.8 H, RBC 3.97 L, Hgb 13.2, Hct 39.7, MCV 100.0 H, MCH 33.2 H, MCHC 33.2, RDW Std Deviation 48.2 H, RDW Coeff of Edgar 13.1, Plt Count 177, MPV 8.9, Immature Gran % (Auto) 0.400, Neut % (Auto) 91.2 H, Lymph % (Auto) 2.9 L, Highland % (Auto) 5.4, Eos % (Auto) 0.0, Baso % (Auto) 0.1, Absolute Neuts (auto) 14.4 H, Absolute Lymphs (auto) 0.46 L, Nucleated RBC % 0, Sodium 138, Potassium 4.2, Chloride 104, Carbon Dioxide 26.0, Anion Gap 8, BUN 30 H, Creatinine 1.06 H, Estim Creat Clear Calc 30.52, Est GFR (MDRD) Af Amer 65, Est GFR (MDRD) Non-Af 53 L, BUN/Creatinine Ratio 28.3 H, Glucose 130 H, Calcium 8.8, Phosphorus 3.6, Total Bilirubin 0.30, AST 28, ALT 30, Alkaline Phosphatase 68, Total Protein 6.5, Albumin 3.1 L, Globulin 3.4, Albumin/Globulin Ratio 0.9, TSH 0.334 L Microbiology: Microbiology 04/25/24 03:45 Mucosa - Nasopharyngeal SARS-CoV-2, Influenza & RSV (PCR) - Final Influenzae A Radiography Diagnostic Testing: Radiology Impression Echocardiogram 04/25/24 07:29 Interpretation Summary Mild concentric left ventricular hypertrophy. The left ventricular ejection fraction is 65 %. Stage 1 diastolic dysfunction. Mild-Moderate (1-2+) mitral valve insufficiency. Ordering Physician: Ming Freed Performed By: Anh Rodriguez, ELEAZAR D/C Instructions Discharge Diet: Low fat / Low cholesterol Call your doctor if you observe: Fever of 101 or Higher, Shortness of breath, Dizziness, Fainting spells, Swelling in the ankles, Chest pain and Increased palpitations (irregular heartbeat) DC O2, CPAP, BIPAP Needs RN Home O2 Qualification: Home O2 Qualification: Is the patient on home oxygen No 04/26/24 09:30 Home O2 Qualification: AT REST 1- Pulse Ox at rest 92 04/26/24 09:30 Home O2 Qualification: WITH AMBULATION 1- Pulse Ox with ambulation 87 04/26/24 09:30 1- Oxygen Flow Rate with 0 04/26/24 09:30 ambulation 2- Pulse Ox with ambulation 90 04/26/24 09:30 2- Oxygen Flow Rate with 2 04/26/24 09:30 ambulation PSN CPAP & BiPAP: BiPAP & CPAP Settings per PSN Fraction of Inspired Oxygen ( 2 04/25/24 05:00 FIO2) Home O2 Discharge instructions: No Meaningful Use Info Meaningful Use Meaningful Use Diagnoses (Choose all that apply): None applicable Ischemic Stroke Statin Dosing Therapy Reference: STATIN DOSE THERAPY REFERENCE: * Patients > 75 years receive moderate or high dose statin therapy. * Patients 75 years or YOUNGER should receive HIGH intensity statin dose unless contraindicated. You will be required to document reason for non-treatment if statin daily dose does not meet guidelines. HIGH DOSE STATIN THERAPY DAILY Atorvastatin > than or = to 40 mg Rosuvastatin > than or = to 20 mg Amlodipine + Atorvastatin > than or = to 2.5/40 mg Ezetimibe + Simvastatin 10/80 mg Simvastatin 80mg Discharge Plan Admission Admit Date/Time: 04/25/24 06:52 Attending Provider: Bob Larsen Primary Care Provider: Merlin Jim Consulting Providers: Ming Freed Discharge Orders/Prescriptions Prescriptions: New oseltamivir 30 mg Capsule 30 mg PO Q12H 5 Days Qty: 10 0RF azithromycin 500 mg tablet 500 mg PO DAILY 2 Days Qty: 2 0RF Rx Instructions: start on day 2 of therapy cefdinir 300 mg capsule 300 mg PO BID 5 Days Qty: 10 0RF Continued tiotropium bromide [Spiriva with HandiHaler] 1 PUFF inhaler 1 puff inhalation DAILY aspirin 81 mg tablet,delayed release (DR/EC) 81 mg PO DAILY diltiazem HCl 120 mg capsule,extended release 24hr 120 mg PO DAILY albuterol sulfate 90 mcg/actuation HFA aerosol inhaler 2 puff INHALATION Q4H PRN PRN (Reason: shortness of breath or wheezing) lisinopril 40 mg tablet 40 mg PO DAILY multivitamin [Daily Multi-Vitamin] Tablet 1 tab PO DAILY ipratropium-albuterol 0.5 mg-3 mg(2.5 mg base)/3 mL solution for nebulization 3 ml inhalation Q4H PRN PRN (Reason: wheezing) prednisone 20 MG tablet 10 mg PO DAILY@0800 Rx Instructions: 40 mg daily for 5 days. Referrals / Follow Up: Merlin Jim MD [Primary Care Provider] - Within 1 Week Disposition Disposition (needs filled in before D/C Order can be placed): Home, Self Care Charges/Coding Visit Charges Inpatient E&M: 14090 Disch Hosp >30min
[2024-04-26 14:10] VITALS: BP 141/80; PULSE 84; RESP 18; TEMP 36.9; O2SAT 98
== END 2024-04-26 16:47 | disposition home or self-care (01) | DRG 191 ==
LOC: ED 06:20 → MS3 06:38
PROVIDERS: Admitting Provider Internal Medicine; Emergency Provider Emergency Medicine; PCP Family Medicine; Visit Provider Family Medicine
DX: J44.1 Chronic obstructive pulmonary disease with (acute) exacerbation (principal); Q23.3 Congenital mitral insufficiency; I73.9 Peripheral vascular disease, unspecified; I10 Essential (primary) hypertension; J10.1 Influenza due to other identified influenza virus with other respiratory manifestations; M79.10 Myalgia, unspecified site; I87.2 Venous insufficiency (chronic) (peripheral); F17.210 Nicotine dependence, cigarettes, uncomplicated; E78.2 Mixed hyperlipidemia; D72.829 Elevated white blood cell count, unspecified; M19.90 Unspecified osteoarthritis, unspecified site; R07.89 Other chest pain; Z79.82 Long term (current) use of aspirin; R63.6 Underweight; Z79.899 Other long term (current) drug therapy; R06.89 Other abnormalities of breathing
CPT/HCPCS: 36415; 71046; 80048; 80053; 80061; 83735; 84100; 84443; 84484; 85025; 87631; 93005; 93306; 94640; 94668; 97161; 97165; 99252; 99285; 99406; A4216; G0463

== ENCOUNTER 2024-08-03 20:55 | Emergency (ER) | payer MEDICARE, SELFPAY ==
[2024-08-03 20:59] VITALS: BP 181/90; PULSE 105; RESP 20; TEMP 36.1; O2SAT 94; BMI 17.4
--- NOTE | 2024-08-03 22:26 | EX.ED.DYSGE1 ---
HPI History of Present Illness Chief Complaint: Shortness of Breath Informant: patient Narrative Narrative: Patient is a 78-year-old female with history of mitral valve regurg, COPD, hypertension, peripheral vascular disease on 2 L of oxygen at night. She states she went to go to bed tonight and her concentrator broke. They tried following the directions on it and calling the service line but could not get it to work or get a hold of anyone. She came in because she did not know what else to do and needed her oxygen at night. No other complaints. She states has been in her normal state of health. She notes that her may be gave her a smidge of a cold last week and she has had a harder time coughing up her secretions. She denies any difficulty breathing right now. [place] any fever or chills. Denies abnormal wheezing. No other complaints or concerns at this time. [facility] Medical History Closed wedge compression fracture of T12 vertebra with routine healing COPD exacerbation Peripheral vascular disease, unspecified Ulcers of both lower extremities, limited to breakdown of skin Venous insufficiency of both lower extremities DDD (degenerative disc disease), lumbar DDD (degenerative disc disease), cervical MR (congenital mitral regurgitation) Stage 3 severe COPD by GOLD classification Mixed hyperlipidemia PAD (peripheral artery disease) Tobacco use disorder, continuous Bilateral carotid artery stenosis PVC's (premature ventricular contractions) Hydronephrosis UPJ obstruction, acquired Family history of ischemic heart disease Sebopsoriasis Other psoriasis Essential hypertension, benign Hallux valgus Porokeratosis Home Medications ?Medication ?Instructions ?Recorded ?Last Taken ?Type tiotropium bromide 18 mcg capsule 1 puff inhalation DAILY 06/08/13 06/08/13 History with inhalation device (Spiriva with HandiHaler) albuterol sulfate 90 mcg/actuation 2 puff inhalation Q4H PRN PRN 04/25/24 Unknown History aerosol inhaler shortness of breath or wheezing aspirin 81 mg tablet,delayed 81 mg PO DAILY 04/25/24 Unknown History release diltiazem HCl 120 mg 120 mg PO DAILY 04/25/24 Unknown History capsule,extended release 24 hr ipratropium 0.5 mg-albuterol 3 mg 3 ml inhalation Q4H PRN PRN 04/25/24 Unknown History (2.5 mg base)/3 mL nebulization wheezing soln lisinopril 40 mg tablet 40 mg PO DAILY 04/25/24 Unknown History multivitamin (Daily Multi-Vitamin 1 tab PO DAILY 04/25/24 Unknown History tablet) prednisone 20 mg tablet 10 mg PO DAILY@0800 04/25/24 Unknown History azithromycin 500 mg tablet 500 mg PO DAILY 2 days #2 tabs 04/26/24 Unknown Rx cefdinir 300 mg capsule 300 mg PO BID 5 days #10 caps 04/26/24 Unknown Rx oseltamivir 30 mg capsule 30 mg PO Q12H 5 days #10 caps 04/26/24 Unknown Rx Allergy/AdvReac Type Severity Reaction Status Date / Time atorvastatin (From Lipitor) Allergy Mild Nausea Verified 08/03/24 20:58 doxycycline Allergy Mild Rash Verified 08/03/24 20:58 [facility] Mild Other Verified 08/03/24 20:58 (honey)) nicotine Allergy Mild Other Verified 08/03/24 20:58 pneumococcal vaccine (From Allergy Mild Other Verified 08/03/24 20:58 Pneumovax-23) Seasonal Allergies: Uncoded Allergy Mild cough Verified 08/03/24 20:58 sertraline (From Zoloft) Allergy Mild Other Verified 08/03/24 20:58 fexofenadine HCl (From Allergy Unknown Verified 08/03/24 20:58 Marcie) Social History Smoking Status: Current every day smoker tobacco type: cigarettes ROS ROS ED Constitutional Constitutional ED: Denies chills or fever(s) Cardiovascular Cardiovascular: Denies chest pain or palpitations Respiratory/Chest Respiratory/Chest: Reports cough and other Details: Chronic cough ; Denies dyspnea Gastrointestinal Gastrointestinal: Denies nausea or vomiting Musculoskeletal Musculoskeletal: Denies arthralgias or myalgias Neurologic Neurologic: Denies weakness EXAM Physical Exam Const Vital Signs: 08/03/24 20:59 08/03/24 21:50 08/03/24 23:00 Temperature 97 F L Temperature Source Temporal Pulse Rate 105 H 76 Respiratory Rate 20 H Respiratory Effort Normal Non-Labored Respiratory Depth Normal Respiratory Pattern Normal Blood Pressure 181/90 H Blood Pressure Mean 120 Pulse Ox 94 99 Oxygen Delivery Method Room Air Nasal Cannula Nasal Cannula Oxygen Flow Rate (L/min) 2 2 Positive well nourished and well developed General Appearance ED: well developed and NAD HEENT Reports moist mucous membranes Neck supple and no JVD Chest Wall inspection of chest normal and palpation of chest normal Resp normal respiratory effort Resp Narrative: Admit breathsounds of the bases with scattered crackles at the bases. No wheezing appreciated. Coarse breath sounds in upper lung field Cardio regular rate and regular rhythm GI normal to inspection, nondistended, normoactive bowel sounds and non-tender Extremity Extremity Narrative: Bilateral pedal edema?1+ Neuro oriented x3 Sensorium / Orientation: alert Motor Exam: Negative for general weakness Psych mental status grossly normal Skin no rashes or lesions noted and no wounds MDM MDM MDM Narrative Medical decision making narrative: Patient evaluated for chronic hypoxia and her concentrator broke at home. She does not have any O2 tanks. As it is 10:00 at night we do not have any way of getting her home oxygen tonight. Will allow her to sleep in the ER in the morning and have social work see her to try to come up with a plan for her to have her p.m. O2. Initial vital signs significant for hypertension and tachycardia. Patient is 94% on 2 L. She is quite well-appearing. She has no conversational dyspnea. She is a relatively benign physical exam. Will recheck. I do not think patient requires workup at this time given her HPI and physical exam. Patient will be signed out to oncoming physician pending reevaluation in the morning where social work/case management can see her to try to figure out her home nighttime O2 situation. Discharge Plan Triage Chief Complaint: Shortness of Breath ED Provider: Shayna Monge Dx/Rx/DC Orders Clinical Impression: Chronic obstructive lung disease, Chronic hypoxemic respiratory failure, On home oxygen therapy Prescriptions: No Action tiotropium bromide [Spiriva with HandiHaler] 1 PUFF inhaler 1 puff inhalation DAILY aspirin 81 mg tablet,delayed release (DR/EC) 81 mg PO DAILY diltiazem HCl 120 mg capsule,extended release 24hr 120 mg PO DAILY albuterol sulfate 90 mcg/actuation HFA aerosol inhaler 2 puff INHALATION Q4H PRN PRN (Reason: shortness of breath or wheezing) lisinopril 40 mg tablet 40 mg PO DAILY multivitamin [Daily Multi-Vitamin] Tablet 1 tab PO DAILY ipratropium-albuterol 0.5 mg-3 mg(2.5 mg base)/3 mL solution for nebulization 3 ml inhalation Q4H PRN PRN (Reason: wheezing) prednisone 20 MG tablet 10 mg PO DAILY@0800 Rx Instructions: 40 mg daily for 5 days. oseltamivir 30 mg Capsule 30 mg PO Q12H 5 Days Qty: 10 0RF azithromycin 500 mg tablet 500 mg PO DAILY 2 Days Qty: 2 0RF Rx Instructions: start on day 2 of therapy cefdinir 300 mg capsule 300 mg PO BID 5 Days Qty: 10 0RF Primary Care Provider: Merlin Jim Referrals: Merlin Jim MD [Primary Care Provider] - Print Language: Congolese
[2024-08-03 23:00] VITALS: PULSE 76; O2SAT 99
[2024-08-04] VITALS (8 sets, daily range): BP systolic 140–152; BP diastolic 62–84; PULSE 62–92; RESP 16–19; O2SAT 91–99
--- NOTE | 2024-08-04 09:13 | CASEMGMT ---
Addendum entered by Priscilla Lima 08/04/24 12:08: Pt does not qualify for home oxygen. Spoke with pt nurse who states pt only wears at HS. JACK DOUGLAS with [employer] into pt room, pt lying in bed on RA in no distress. Pt does not know how to reach provider for current oxygen. Pt is willing and requests to pay self pay for oxygen at HS. Pt chooses [employer]. Order received and sent to [employer] via [employer]. TC to Rolan to make aware. Pt anxious to dc home as she has a dr appt this date. Addendum entered by Priscilla Lima 08/04/24 10:55: Spoke with Rolan at [facility], oxygen testing on room air will be required as this will be a new set up for the patient again. Updated Zoie HOFFMAN in ER. Addendum entered by Priscilla Lima 08/04/24 10:52: 0950- Received notification from Rolan that pt did have [employer] for equipment for oxygen but pt has returned it. He reports pt has purchased a concentrator privately. They cannot service this concentrator but could take pt back on for service. Updated ns network control supervisor. 1005- TC to Zoie in ER to make aware of pt situation, that she can contact her provider to fix her home oxygen or be set up with another provider. Oxygen testing intervention entered. Original Note: TC to [facility] liaison to make aware pt is reporting her oxygen concentrator is malfunctioning at home. Requested returned call.
[2024-08-04] MEDS: Aspirin 81 MG TAB.CHEW PO (10:15)
[2024-08-04] MEDS: Lisinopril 40 MG Tablet PO (10:15)
[2024-08-04] MEDS: dilTIAZem 60 MG CAP.SR.12H 120 MG PO (10:15)
[2024-08-04] MEDS: predniSONE 10 MG Tablet PO (10:15)
--- NOTE | 2024-08-04 12:10 | CM.ED ---
Social work Reason for referral: needs assistance with either repairs to O2 concentrator or replacement unit Referral source: Mari SANTIAGO/Dr. Monge When this SW arrived to the shift, SW saw patient's consult and saw note from Priscilla OLIVEROS that Priscilla had been contacted earlier in the day regarding patient's needs. Per Dr. Monge's note, patient was able to sleep in [facility] ED in order for SW to assist patient this morning with patient's O2 needs. SW called both Rolan, [facility] hospital liaison, and Priscilla prior to entering patient's room. This SW entered patient's room, introducing self and role at [facility] to patient and patient's , Jose. Patient confirmed wanting to receive O2 from [employer] and not wanting [facility]. Patient confirmed having a concentrator from a private company, but patient denied ever having [employer] for services (per Rolan, patient had [employer] from April 2024 to May 2024). SW explained to patient that in order to receive O2 from [employer], patient would need to do O2 testing with nurses to verify qualifying for it. Patient stated understanding and expressed having a doctor appointment this afternoon and hoping it did not take too much longer. SW updated patient's nurse, Hali SANTIAGO, of need to test patient's O2. Per RN's testing, patient did not qualify for home O2 with a pulse ox of 89 with ambulation on room air. Priscilla OLIVEROS arrived to [facility] ED to help this SW with patient's situation. Per conversation with supervisors Yesi and Chloe, the options for patient were to private pay to [employer] or reach out to the company who is supplying the O2 currently to see if patient's current concentrator could be fixed. The other option would be for patient to discharge to the sleep lab for a sleep study. Per conversation with Tara at the sleep lab (ext [phone]), the next bed opening would be 08/10. Priscilla OLIVEROS and this SW went back into patient's room where patient was growing increasingly agitated. Patient was told that patient does not qualify for home O2 currently and patient confirmed only needing O2 at night, so patient stated not being surprised by this. Priscilla expressed not being able to use old testing and old prescriptions. Patient's stated patient currently has O2 through [employer], an online O2 company, and patient has not been able to get in contact with anyone to come service the equipment. Patient stated having an appointment this afternoon at the [facility] with Dr. Lang. Patient stated wanting to privately pay for [employer] services. Priscilla RNCM stated ability to submit documentation for this SW. SW went and updated patient and patient's . Patient stated frustration with the length of time this ED visit had taken (patient arrived last evening at 2054 and slept here in order to have assistance with O2 needs this morning). Rolan from [employer] updated as well. Plan: Rolan providing [employer] equipment; then patient can be discharged home. Cindy Foote, MOTOR COACH SUPERVISOR, WATER QUALITY ANALYST
== END 2024-08-04 13:22 | disposition home or self-care (01) ==
PROVIDERS: Emergency Provider Emergency Medicine; PCP Family Medicine; Visit Provider Emergency Medicine
DX: J96.11 Chronic respiratory failure with hypoxia (principal); J44.9 Chronic obstructive pulmonary disease, unspecified; I10 Essential (primary) hypertension; E78.2 Mixed hyperlipidemia; Z99.81 Dependence on supplemental oxygen; Z79.899 Other long term (current) drug therapy; Z79.82 Long term (current) use of aspirin; F17.210 Nicotine dependence, cigarettes, uncomplicated
CPT/HCPCS: 99283